=== PATIENT | male | born 1980 | race Caucasian/White ===

== ENCOUNTER 2016-12-04 11:07 | Outpatient (CLI) | payer OTHER ==
[2016-12-04 12:08] LABS: eGFR (African) > 60; eGFR (Non-African) > 60
== END 2016-12-04 11:10 ==
LOC: LAB 11:07
PROVIDERS: ATTEND Family Medicine
DX: E11.9 Type 2 diabetes mellitus without complications (principal)
CPT/HCPCS: 36415; 80053; 80061; 83036

== ENCOUNTER 2019-04-28 10:02 | Outpatient (CLI) | payer OTHER | END 2019-04-28 10:07 | LOC: LAB 10:02 | PROVIDERS: ATTEND Family Medicine | DX: E11.9 Type 2 diabetes mellitus without complications (principal) | CPT/HCPCS: 36415; 83036 ==